=== PATIENT | male | born 1995 | race Caucasian/White ===

== ENCOUNTER 2024-12-23 15:25 | Emergency (ER) | payer OTHER, SELFPAY ==
--- NOTE | ~2024-12-23 | XR_ITS ---
EXAMINATION: XR chest 2V 12/23/2024 16:00 INDICATION: Chest Pain COMPARISON: FINDINGS: The lungs are clear. The cardiomediastinal silhouette is within normal limits. There are no pleural effusions. There is no pneumothorax suspected. IMPRESSION: 1: NO ACUTE CARDIOPULMONARY DISEASE. Reviewed, dictated and finalized at location A.
--- NOTE | 2024-12-23 15:32 | ECG_ITS ---
Test Date: 2024-12-23 15:36:34 Measurements Intervals [place] Rate: 82 P: 42 ID: [id number] QRS: 29 QRSD: 86 T: -9 QT: 335 QTc: 392 Interpretive Statements SINUS RHYTHM BORDERLINE ST-T WAVE ABNORMALITY- INFERIOR LEADS BORDERLINE ECG No previous ECG available for comparison Electronically Signed On 12-23-2024 16:58:17 CDT by Romel Adorno D.O.
[2024-12-23 15:42] VITALS: BP 124/86; PULSE 93; RESP 16; TEMP 36.7; O2SAT 99
[2024-12-23 15:55] LABS: Hematocrit 41.9 % (42.0-52.0); Hemoglobin 14.4 g/dL (14.0-18.0); Immature Granulocyte Percent A 0.3 % (0-0.5); Lymphocytes Absolute Auto 2.30 K/mm3 (0.9-3.2); Mean Corpuscular HGB Conc 34.4 g/dl (32-36); Mean Corpuscular Hemoglobin 29.8 pg (26-34); Mean Corpuscular Volume 86.7 fl (80-100); Nucleated Red Blood Cells Absolute Auto 0.000 K/mm3 (0.0-0.012); Nucleated Red Blood Cells Perc 0.0 % (0.0-0.2); Platelet Count Result 308 k/mm3 (150-375); Red Blood Count 4.83 M/mm3 (4.6-6.20); White Blood Count 6.3 K/mm3 (4.5-10.0)
[2024-12-23 16:03] LABS: INR 1.0; Prothrombin Time 13.7 Seconds (11.1-14.7)
[2024-12-23 16:04] LABS: Partial Thromboplastin Time 30.4 Seconds (22.3-36.8)
[2024-12-23 16:15] LABS: Alanine Aminotransferase 27 U/L (6-50); Albumin Level 4.8 g/dL (3.5-5.1); Alkaline Phosphatase 49 U/L (38-126); Anion Gap 9 mmol/L (4-12); Aspartate Amino Transferase 33 U/L (17-59); Bilirubin,Total 0.7 mg/dL (0.2-1.3); Blood Urea Nitrogen 13 mg/dL (9-20); Calcium 9.8 mg/dL (8.4-10.2); Carbon Dioxide 28 mmol/L (22-30); Chloride 101 mmol/L (98-107); Estimated CRCL calculation 94 ml/min; Estimated Glomerular Filt Rate > 60; Glucose 117 mg/dL (65-110); Lipase 48 U/L (23-300); Potassium 4.0 mmol/L (3.4-5.0); Sodium 138 mmol/L (137-145); Total Protein 8.1 g/dL (6.3-8.2)
[2024-12-23 16:27] LABS: Troponin I < 0.012 ng/mL (0.000-0.034)
--- NOTE | 2024-12-23 17:33 | ED.CHESTPAIN ---
HPI - Chest Pain General Chief Complaint: Chest Pain <Lolly Martinez PA-C - Last Filed: 12/24/24 09:30> Stated Complaint: chest pain <Lolly Martinez PA-C - Last Filed: 12/24/24 09:30> Time Seen by Provider: 12/23/24 17:33 <Lolly Martinez PA-C - Last Filed: 12/24/24 09:30> Focused HPI: This is a 29 year old male that presents to the ER for palpitations. Ongoing over the last week. Reports associated chest pain. Worse with exertion. GENERAL: Well-appearing, well-nourished, and in no acute distress. HEAD: Normocephalic, atraumatic. CHEST: Clear to auscultation. ?No respiratory distress. HEART: Regular rate and rhythm.? NEURO: ?Alert and oriented x3. Patient screened in triage and initial orders placed.? ?Additional care and disposition to be based upon?diagnostic testing and treatment. <Lolly Martinez PA-C - Last Filed: 12/24/24 09:30> History of Present Illness HPI narrative: Agree with the HPI. Patient initially felt palpitations/left chest discomfort while walking on the treadmill a week ago. His exercise is not new for him. He is relatively active at baseline. Pain is intermittent and is not necessarily associated with exercise or exertion. No prior cardiac history. No family history of cardiac disease. No recent illnesses. <Issa Haas MD - Last Filed: 12/23/24 19:01> Related Data Allergies/Adverse Reactions: Allergies Allergy/AdvReac Type Severity Reaction Status Date / Time No Known Allergies Allergy Verified 12/23/24 15:45 <Lolly Martinez PA-C - Last Filed: 12/24/24 09:30> Review of Systems Review of Systems: Gen.: Denies fevers or chills Eyes: Denies eye pain or visual change ENT: Denies congestion Respiratory: Denies shortness of breath or cough CV: As per HPI GI: Denies abdominal pain nausea, emesis or diarrhea denies burning, urgency, frequency or hematuria Musculoskeletal: Denies back pain or muscle pain Neuro: Denies numbness, tingling, weakness or focal weakness Skin: Denies rash Except as documented, all other systems reviewed and negative <Issa Haas MD - Last Filed: 12/23/24 19:01> Exam Narrative: APPEARANCE: No acute distress, nontoxic, resting in bed EYES: EOMI HEENT: Normocephalic, atraumatic, OMM RESPIRATORY: No respiratory distress Clear to auscultation bilaterally with no rhonchi wheezing or rales. CARDIOVASCULAR: Regular rate and rhythm without murmurs rubs or gallops. Mild tenderness to palpation to the left anterior chest wall ABDOMINAL: Soft, nontender, nondistended, no rebound or guarding MUSCULOSKELETAl: Moves all extremities. No clubbing, cyanosis or edema. NEURO: Awake and alert. Following commands, speech normal, no focal deficits SKIN:: Warm, dry. No rashes lesions or abrasions PSYCHIATRIC: Normal affect/mood, <Issa Haas MD - Last Filed: 12/23/24 19:01> Course Vital Signs Vital signs: Vital Signs Temperature 98.0 F 12/23/24 15:42 Pulse Rate 93 12/23/24 15:42 Respiratory Rate 16 12/23/24 15:42 Blood Pressure 124/86 12/23/24 15:42 Pulse Oximetry 99 12/23/24 15:42 Oxygen Delivery Room Air 12/23/24 15:42 Temperature 98.0 F 12/23/24 15:42 Pulse Rate 77 12/23/24 18:52 Respiratory Rate 18 12/23/24 18:52 Blood Pressure 128/76 12/23/24 18:52 Pulse Oximetry 99 12/23/24 18:52 Oxygen Delivery Room Air 12/23/24 18:52 <Lolly Martinez PA-C - Last Filed: 12/24/24 09:30> Vital Signs Temperature 98.0 F 12/23/24 15:42 Pulse Rate 93 12/23/24 15:42 Respiratory Rate 16 12/23/24 15:42 Blood Pressure 124/86 12/23/24 15:42 Pulse Oximetry 99 12/23/24 15:42 Oxygen Delivery Room Air 12/23/24 15:42 Temperature 98.0 F 12/23/24 15:42 Pulse Rate 77 12/23/24 18:52 Respiratory Rate 18 12/23/24 18:52 Blood Pressure 128/76 12/23/24 18:52 Pulse Oximetry 99 12/23/24 18:52 Oxygen Delivery Room Air 12/23/24 18:52 <Issa Haas MD - Last Filed: 12/23/24 19:01> MDM - Chest Pain MDM Narrative Medical decision making narrative: 29-year-old male with no significant past medical history presented to the ED for chest pain for a week. On initial evaluation, patient was in acute distress, afebrile, hemodynamically stable. He had mild reproducible left-sided chest wall discomfort. No cardiac history. Heart score is 0. EKG showed no significant abnormalities. Chest x-ray showed no acute process. Labs without significant abnormalities. Suspect patient has costochondritis. He was advised to take Tylenol ibuprofen for the pain. He was given a prescription for Lidoderm. He is given referral to Family Medicine to establish care. Patient was agreeable to plan. Given strict return precautions. <Issa Haas MD - Last Filed: 12/23/24 19:01> Differential Diagnosis Differential diagnosis: Likely fracture of rib, atypical chest pain, costochondritis and chest pain <Issa Haas MD - Last Filed: 12/23/24 19:01> Lab Data Attestation: I reviewed the patient's lab results. <Issa Haas MD - Last Filed: 12/23/24 19:01> Result diagrams: 12/23/24 15:47 12/23/24 15:47 <Lolly Martinez PA-C - Last Filed: 12/24/24 09:30> Labs: Lab Results 12/23/24 12/23/24 Range/Units 15:47 18:29 WBC 6.3 (4.5-10.0) K/mm3 RBC 4.83 (4.6-6.20) M/mm3 Hgb 14.4 (14.0-18.0) g/dL Hct 41.9 L (42.0-52.0) % MCV 86.7 (80-100) fl MCH 29.8 (26-34) pg MCHC 34.4 (32-36) g/dl RDW 11.9 (11.5-14.5) % Plt Count 308 (150-375) k/mm3 MPV 10.0 (7.4-10.4) fl Immature Gran % (Auto) 0.3 (0-0.5) % Neut % (Auto) 52.4 (45.5-73.1) % Lymph % (Auto) 36.5 (18.3-44.2) % Nobles % (Auto) 8.1 (2.6-8.5) % Eos % (Auto) 1.6 (0-4.4) % Baso % (Auto) 1.1 (0.2-1.2) % Lymph # (Auto) 2.30 (0.9-3.2) K/mm3 Nobles # (Auto) 0.5 (0.1-0.6) K/mm3 Eos # (Auto) 0.1 (0-0.3) K/mm3 Baso # (Auto) 0.1 (0.0-0.1) K/mm3 Abs Immat Gran (auto) 0.02 (0.00-0.031) K/mm3 Absolute Neuts (auto) 3.3 (1.3-6.7) K/mm3 Absolute Nucleated RBC 0.000 (0.0-0.012) K/mm3 Nucleated RBC % 0.0 (0.0-0.2) % PT 13.7 (11.1-14.7) Seconds INR 1.0 APTT 30.4 (22.3-36.8) Seconds Sodium 138 (137-145) mmol/L Potassium 4.0 (3.4-5.0) mmol/L Chloride 101 (98-107) mmol/L Carbon Dioxide 28 (22-30) mmol/L Anion Gap 9 (4-12) mmol/L BUN 13 (9-20) mg/dL Creatinine 1.01 (0.7-1.3) mg/dL Estim Creat Clear Calc 94 ml/min Estimated GFR > 60 (59 - ) Glucose 117 H (65-110) mg/dL Calcium 9.8 (8.4-10.2) mg/dL Total Bilirubin 0.7 (0.2-1.3) mg/dL AST 33 (17-59) U/L ALT 27 (6-50) U/L Alkaline Phosphatase 49 (38-126) U/L Troponin I < 0.012 < 0.012 (0.000-0.034) ng/mL Total Protein 8.1 (6.3-8.2) g/dL Albumin 4.8 (3.5-5.1) g/dL Lipase 48 (23-300) U/L <Lolly Martinez PA-C - Last Filed: 12/24/24 09:30> Lab Results 12/23/24 12/23/24 Range/Units 15:47 18:29 WBC 6.3 (4.5-10.0) K/mm3 RBC 4.83 (4.6-6.20) M/mm3 Hgb 14.4 (14.0-18.0) g/dL Hct 41.9 L (42.0-52.0) % MCV 86.7 (80-100) fl MCH 29.8 (26-34) pg MCHC 34.4 (32-36) g/dl RDW 11.9 (11.5-14.5) % Plt Count 308 (150-375) k/mm3 MPV 10.0 (7.4-10.4) fl Immature Gran % (Auto) 0.3 (0-0.5) % Neut % (Auto) 52.4 (45.5-73.1) % Lymph % (Auto) 36.5 (18.3-44.2) % Nobles % (Auto) 8.1 (2.6-8.5) % Eos % (Auto) 1.6 (0-4.4) % Baso % (Auto) 1.1 (0.2-1.2) % Lymph # (Auto) 2.30 (0.9-3.2) K/mm3 Nobles # (Auto) 0.5 (0.1-0.6) K/mm3 Eos # (Auto) 0.1 (0-0.3) K/mm3 Baso # (Auto) 0.1 (0.0-0.1) K/mm3 Abs Immat Gran (auto) 0.02 (0.00-0.031) K/mm3 Absolute Neuts (auto) 3.3 (1.3-6.7) K/mm3 Absolute Nucleated RBC 0.000 (0.0-0.012) K/mm3 Nucleated RBC % 0.0 (0.0-0.2) % PT 13.7 (11.1-14.7) Seconds INR 1.0 APTT 30.4 (22.3-36.8) Seconds Sodium 138 (137-145) mmol/L Potassium 4.0 (3.4-5.0) mmol/L Chloride 101 (98-107) mmol/L Carbon Dioxide 28 (22-30) mmol/L Anion Gap 9 (4-12) mmol/L BUN 13 (9-20) mg/dL Creatinine 1.01 (0.7-1.3) mg/dL Estim Creat Clear Calc 94 ml/min Estimated GFR > 60 (59 - ) Glucose 117 H (65-110) mg/dL Calcium 9.8 (8.4-10.2) mg/dL Total Bilirubin 0.7 (0.2-1.3) mg/dL AST 33 (17-59) U/L ALT 27 (6-50) U/L Alkaline Phosphatase 49 (38-126) U/L Troponin I < 0.012 < 0.012 (0.000-0.034) ng/mL Total Protein 8.1 (6.3-8.2) g/dL Albumin 4.8 (3.5-5.1) g/dL Lipase 48 (23-300) U/L <Issa Haas MD - Last Filed: 12/23/24 19:01> Imaging Data Radiologist's impression: Impressions Chest X-Ray 12/23/24 16:06 IMPRESSION: 1: NO ACUTE CARDIOPULMONARY DISEASE. <Issa Haas MD - Last Filed: 12/23/24 19:01> Critical Care Time Critical Care Time Critical Care Time: No <Lolly Martinez PA-C - Last Filed: 12/24/24 09:30> Discharge Plan Discharge Clinical Impression: Costalchondritis <Lolly Martinez PA-C - Last Filed: 12/24/24 09:30> Patient Disposition: Home <Lolly Martinez PA-C - Last Filed: 12/24/24 09:30> Condition: Stable <Lolly Martinez PA-C - Last Filed: 12/24/24 09:30> Instructions: Antibiotic Form, Costochondritis (ED) <Lolly Martinez PA-C - Last Filed: 12/24/24 09:30> Additional Instructions: Using the ED today for chest pain. EKG, chest x-ray, labs were all reassuring and showed no evidence of cardiac injury at this time. He likely has costochondritis which is an inflammation of the nerves around the ribs. He may take Tylenol and ibuprofen for the pain. You were given a referral to family medicine to establish care. <Lolly Martinez PA-C - Last Filed: 12/24/24 09:30> Patient Language: Kazakh <Lolly Martinez PA-C - Last Filed: 12/24/24 09:30> Prescriptions: New lidocaine [Lidoderm] 5 % adhesive patch,medicated 1 patch topical DAILY Qty: 15 0RF Rx Instructions: leave on most painful area for up to 12 hrs <Lolly Martinez PA-C - Last Filed: 12/24/24 09:30> Follow-up/Referrals: PHYSICIAN,BELT SANDER [Primary Care Provider, Internal Medicine] <EDEL Massey Last Filed: 12/24/24 09:30>
[2024-12-23 18:52] VITALS: BP 128/76; PULSE 77; RESP 18; O2SAT 97; O2SAT 99
[2024-12-23 19:05] LABS: Troponin I < 0.012 ng/mL (0.000-0.034)
== END 2024-12-23 19:01 | disposition home or self-care (01) ==
LOC: ANHED 18:55
PROVIDERS: Emergency Medicine; Emergency Provider Student in an Organized Health Care Education/Training Program
DX: M94.0 Chondrocostal junction syndrome [Tietze] (principal)
CPT/HCPCS: 36415; 71046; 80053; 83690; 84484; 85025; 85610; 85730; 93005; 99284